=== PATIENT | male | born 1965 | race Caucasian/White ===

== ENCOUNTER 2022-08-24 11:32 | Emergency (ER) | payer OTHER ==
[2022-08-24] MEDS ORDERED: KETOROLAC 15 MG/ML 1 ML VIAL IVP STA (11:54)
[2022-08-24] MEDS ORDERED: LIDOCAINE 5% PATCH TOPICAL SCH (12:00)
--- NOTE | 2022-08-24 12:15 | ED ---
Back Pain HPI - General Chief Complaint: Back Pain/Injury Stated Complaint: lower back pain Time Seen by Provider: 08/24/22 11:38 Source: patient, RN notes reviewed Mode of arrival: ambulatory Limitations: no limitations - History of Present Illness Initial Comments: This is a 57-year-old male who presents to the emergency department for lower back pain. States that this started 4-5 days ago. Denies any known injuries. States that this is in the middle of the lower back. He takes Tylenol #3 at home, which have not been effective. Pain is much worse with movement. He does have chronic back problems, but states that this is much worse. Unsure how to describe this pain. Denies any loss of bowel/bladder control, but does feel like he has some weakness in the hip. Denies any fevers, chills, sore throat, cough, dyspnea, chest pain, palpitations, abdominal pain, nausea, vomiting, diarrhea, or headaches. MD Complaint: back pain Onset/Timin -: days(s) - Related Data Home Medications Medication Instructions Recorded Confirmed Acetaminophen with Codeine 1 tab PO TID 05/11/22 05/11/22 [Tylenol #4 Tablet] Albuterol Sulfate [Ventolin HFA] 1 puff INHALATION RT-Q4H PRN 05/11/22 05/11/22 Aspirin 81 mg PO DAILY 05/11/22 05/11/22 Atorvastatin [Lipitor] 40 mg PO DAILY 05/11/22 05/11/22 Cetirizine HCl [Zyrtec] 10 mg PO DAILY 05/11/22 05/11/22 Cholecalciferol [Vitamin D3 (25 25 mcg PO DAILY 05/11/22 05/11/22 Mcg = 1000 Iu)] Cyanocobalamin [Vitamin B-12] 1,000 mcg PO DAILY 05/11/22 05/11/22 Fluticasone Nasal [place] [Flonase 1 spr EA NOSTRIL DAILY 05/11/22 05/11/22 Nasal [place]] Metoprolol Succinate (ER) [Toprol 25 mg PO DAILY 05/11/22 05/11/22 Xl] Vitamin B Complex 1 cap PO DAILY 05/11/22 05/11/22 cilostazoL [Pletal] 100 mg PO BID 05/11/22 05/11/22 glipiZIDE XL [Glucotrol Xl] 5 mg PO DAILY 05/11/22 05/11/22 lisinopriL [Zestril] 10 mg PO HS 05/11/22 05/11/22 metFORMIN HCL 1,000 mg PO BID 05/11/22 05/11/22 Previous Rx's Medication Instructions Recorded Ketorolac [Toradol] 10 mg PO Q6HR PRN #12 tab 08/24/22 Lidocaine 5% Patch [Lidoderm 5% 1 patch TOPICAL DAILY PRN #30 patch 08/24/22 Patch] methocarbamoL [Robaxin-750] 750 mg PO TID PRN 7 Days #21 tab 08/24/22 Allergies Allergy/AdvReac Type Severity Reaction Status Date / Time Penicillins Allergy Unknown Verified 08/24/22 11:34 Childhood Review of Systems ROS Statement: Those systems with pertinent positive or pertinent negative responses have been documented in the HPI. ROS Other: All systems not noted in ROS Statement are negative. Past Medical History Past Medical History: COPD, Diabetes Mellitus, Hyperlipidemia, Hypertension History of Any Multi-Drug Resistant Organisms: None Reported Additional Past Surgical History / Comment(s): aortic heart valve, neck plates Past Psychological History: No Psychological Hx Reported Smoking Status: Never smoker Past Alcohol Use History: None Reported Past Drug Use History: None Reported General Exam Limitations: no limitations General appearance: alert, in no apparent distress Head exam: Present: atraumatic, normocephalic, normal inspection Respiratory exam: Present: normal lung sounds bilaterally. Absent: respiratory distress, wheezes, rales, rhonchi, stridor Cardiovascular Exam: Present: regular rate, normal rhythm, normal heart sounds. Absent: systolic murmur, diastolic murmur, rubs, gallop, clicks GI/Abdominal exam: Present: soft, normal bowel sounds. Absent: distended, tenderness, guarding, rebound, rigid Back exam: Present: normal inspection, other (Limited range of motion secondary to pain. No palpable tenderness.) Neurological exam: Present: alert, oriented X3, CN II-XII intact Psychiatric exam: Present: normal affect, normal mood Skin exam: Present: warm, dry, intact, normal color. Absent: rash Course Vital Signs 08/24/22 08/24/22 11:34 14:34 Temperature 98 F 97.6 F Pulse Rate 89 92 Respiratory 20 16 Rate Blood Pressure 112/74 116/78 O2 Sat by Pulse 99 99 Oximetry Medical Decision Making - Medical Decision Making This is a 57-year-old male who presents to the emergency department for lower back pain. Was pt. sent in by a medical professional or institution? @ -No Did you speak to anyone other than the patient for history? @ -No Did you review nursing and triage notes? @ -Yes, and I agree, it is accurate with regards to the patient's symptoms. Were old charts reviewed? @ -No Differential Diagnosis? @ -Differential Back Pain: Strain, zoster, cauda equina syndrome, epidural abscess, vertebral osteomyelitis, discitis, fracture, subluxation, disc herniation, DJD, spinal stenosis, dissection, AAA, pancreatitis, peptic ulcer disease, pyelonephritis, kidney stone, this is not meant to be an all-inclusive list. EKG interpreted by me (3pts min.)? @ -Not obtained X-rays interpreted by me (1pt min.)? @ -Not obtained CT interpreted by me (1pt min.)? @ -CT angiogram of the abdomen and pelvis and CT scan of the lumbar spine obtained. My interpretation identifies no evidence of an aneurysm and there are multiple degenerative changes in the lumbar spine. U/S interpreted by me (1pt. min.)? @ -Not obtained What testing was considered but not performed? (CT, X-rays, U/S, labs)? Why? @ -None What meds were considered but not given? Why? @ -None Did you discuss the management of the patient with other professionals? @ -No Did you reconcile home meds? @ -No Was smoking cessation discussed for >3mins.? @ -No Was critical care preformed (if so, how long)? @ -No Were there social determinants of health that impacted care today? How? (Homelessness, low income, unemployed, alcoholism, drug addiction, transportation, low edu. Level, literacy, decrease access to med. care, prison, rehab)? @ -No Was there de-escalation of care discussed even if they declined? (Discuss DNR or withdrawal of care, Hospice)? @ -No What co-morbidities impacted this encounter? (DM, HTN, Smoking, COPD, CAD, Cancer, CVA, Hep., AIDS, mental health diagnosis, sleep apnea, morbid obesity)? @ -DM, HTN, HLD Was patient admitted / discharged? @ -Discharged. Lab work obtained revealing leukocytosis. He was given Toradol and a lidocaine patch was applied, which was helpful for his pain. Given that this was a nontraumatic back pain that was not reproducible, along with his age and comorbidities, computed tomography scan of the abdomen and pelvis was obtained in conjunction with a computed tomography scan of the lumbar spine to rule out any problems related to the aorta. Computed tomography scan revealed no acute findings. It did identify multiple degenerative changes of the lumbar spine. The causae of his leukocytosis is not entirely clear. He is advised to follow-up with his primary care provider to have blood work rechecked. Prescriptions for Toradol, Robaxin, and lidocaine patches provided with dosing instructions reviewed. He is advised that the Robaxin can be sedating and he should avoid driving or operating machinery when taking this. Undiagnosed new problem with uncertain prognosis? @ -None Drug Therapy requiring intensive monitoring for toxicity (Heparin, Nitro, Insulin, Cardizem)? @ -None Were any procedures done? @ -None Diagnosis/symptom? @ -Lumbar strain Acute, or Chronic, or Acute on Chronic? @ -Acute Uncomplicated (without systemic symptoms) or Complicated (systemic symptoms)? @ -Uncomplicated Side effects of treatment? @ -None Exacerbation, Progression, or Severe Exacerbation] @ -Not applicable Poses a threat to life or bodily function? @ -No Return precautions reviewed in depth, the patient is instructed to return to the emergency department with any new, worsening, or concerning symptoms. Patient verbalized understanding. This case was discussed in detail with the attending ED physician, Dr. Keen. Presentation, findings, and treatment plan discussed in detail as well. - Lab Data Result diagrams: 08/24/22 12:01 08/24/22 12:01 Lab Results 08/24/22 08/24/22 08/24/22 Range/Units 12: 12: 13:02 WBC 15.4 H (3.8-10.6) k/uL RBC 4.16 L (4.30-5.90) m/uL Hgb 13.0 (13.0-17.5) gm/dL Hct 38.0 L (39.0-53.0) % MCV 91.3 (80.0-100.0) fL MCH 31.2 (25.0-35.0) pg MCHC 34.2 (31.0-37.0) g/dL RDW 12.6 (11.5-15.5) % Plt Count 206 (150-450) k/uL MPV 7.4 Neutrophils % 60 % Lymphocytes % 31 % Monocytes % 6 % Eosinophils % 1 % Basophils % 1 % Neutrophils # 9.3 H (1.3-7.7) k/uL Lymphocytes # 4.7 (1.0-4.8) k/uL Monocytes # 0.9 (0-1.0) k/uL Eosinophils # 0.2 (0-0.7) k/uL Basophils # 0.1 (0-0.2) k/uL Sodium 137 (137-145) mmol/L Potassium 4.2 (3.5-5.1) mmol/L Chloride 104 (98-107) mmol/L Carbon Dioxide 23 (22-30) mmol/L Anion Gap 10 mmol/L BUN 19 (9-20) mg/dL Creatinine 0.84 (0.66-1.25) mg/dL Est GFR (CKD-EPI)AfAm >90 (>60 ml/min/1.73 sqM) Est GFR (CKD-EPI)NonAf >90 (>60 ml/min/1.73 sqM) Glucose 184 H (74-99) mg/dL Calcium 9.1 (8.4-10.2) mg/dL Total Bilirubin 0.4 (0.2-1.3) mg/dL AST 23 (17-59) U/L ALT 28 (4-49) U/L Alkaline Phosphatase 77 (38-126) U/L Total Protein 6.8 (6.3-8.2) g/dL Albumin 4.3 (3.5-5.0) g/dL Urine Color Colorless Urine Appearance Clear (Clear) Urine pH 5.0 (5.0-8.0) Ur Specific [place] 1.003 (1.001-1.035) Urine Protein Negative (Negative) Urine Glucose (UA) Negative (Negative) Urine Ketones Negative (Negative) Urine Blood Negative (Negative) Urine Nitrite Negative (Negative) Urine Bilirubin Negative (Negative) Urine Urobilinogen <2.0 (<2.0) mg/dL Ur Leukocyte Esterase Negative (Negative) - Radiology Data Radiology results: report reviewed, image reviewed Disposition Clinical Impression: Strain of lumbar region Disposition: HOME SELF-CARE Instructions (If sedation given, give patient instructions): Low Back Strain (ED) Additional Instructions: Return to the emergency department with any new, worsening, or concerning symptoms. Take the Toradol up to every 6 hours as needed for pain relief. Do not take this with other [id number] anti-inflammatories such as ibuprofen. You can apply the lidocaine patches daily and you can take the muscle relaxant up to 3 times daily as well. Beware that this may make you drowsy and you should not drive or operate machinery when taking this. Follow up with your primary care provider in 1-2 days. Prescriptions: Lidocaine 5% Patch [Lidoderm 5% Patch] 1 patch TOPICAL DAILY PRN #30 patch PRN Reason: Pain methocarbamoL [Robaxin-750] 750 mg PO TID PRN 7 Days #21 tab PRN Reason: Pain Ketorolac [Toradol] 10 mg PO Q6HR PRN #12 tab PRN Reason: Pain Is patient prescribed a controlled substance at d/c from ED?: No Referrals: None,Stated [Primary Care Provider] - 1-2 days
[2022-08-24 12:16] LABS: Basophils # (A) 0.1 k/uL (0-0.2); Basophils % (A) 1 %; Eosinophils # (A) 0.2 k/uL (0-0.7); Eosinophils % (A) 1 %; Lymphocytes # (A) 4.7 k/uL (1.0-4.8); Lymphocytes % (A) 31 %; MCH 31.2 pg (25.0-35.0); MCHC 34.2 g/dL (31.0-37.0); MCV 91.3 fL (80.0-100.0); Mean Platelet Volume 7.4; Monocytes # (A) 0.9 k/uL (0-1.0); Monocytes % (A) 6 %; Neutrophils # (A) 9.3 k/uL (1.3-7.7); Neutrophils % (A) 60 %; Platelet Count 206 k/uL (150-450); RBC 4.16 m/uL (4.30-5.90); RDW 12.6 % (11.5-15.5); WBC 15.4 k/uL (3.8-10.6)
[2022-08-24 12:28] LABS: ALT 28 U/L (4-49); AST 23 U/L (17-59); African American GFR (CKD) >90 (>60 ml/min/1.73 sqM); Albumin 4.3 g/dL (3.5-5.0); Alkaline Phosphatase 77 U/L (38-126); Anion Gap 10 mmol/L; Blood Urea Nitrogen 19 mg/dL (9-20); Calcium 9.1 mg/dL (8.4-10.2); Carbon Dioxide 23 mmol/L (22-30); Chloride 104 mmol/L (98-107); Glucose 184 mg/dL (74-99); Non-African American GFR(CKD) >90 (>60 ml/min/1.73 sqM); Potassium 4.2 mmol/L (3.5-5.1); Sodium 137 mmol/L (137-145); Total Bilirubin 0.4 mg/dL (0.2-1.3); Total Protein 6.8 g/dL (6.3-8.2)
[2022-08-24 13:14] LABS: Appearance,Urine Clear (Clear); Bilirubin,Urine Negative (Negative); Blood,Urine Negative (Negative); Color,Urine Colorless; Glucose,Urine (UA) Negative (Negative); Ketones,Urine Negative (Negative); Leukocyte Esterase,Urine Negative (Negative); Nitrite,Urine Negative (Negative); Protein,Urine Negative (Negative); Specific Gravity,Urine 1.003 (1.001-1.035); Urobilinogen,Urine <2.0 mg/dL (<2.0)
--- NOTE | 2022-08-24 13:38 | CT ---
EXAMINATION TYPE: CT angio abdomen pelvis CT DLP: 684.10 mGycm, Automated exposure control for dose reduction was used. DATE OF EXAM: 08/24/2022 1:28 PM COMPARISON: None CLINICAL INDICATION:Male, 57 years old with history of Low back pain, no injury; PHH, Low back pain, evaluate the aorta TECHNIQUE: Multiple thin slice sub-millimeter images were obtained through the abdomen, pelvis, and l ower extremities after administration of contrast. 3-D reconstructed images and maximum intensity pr ojection images were obtained of the abdomen, pelvis, and lower extremities. CT Contrast: Contrast used:100 ml mL of Isovue 370 without and with IV Contrast, Oral contrast used: without Oral Contrast None FINDINGS: CTA Abdomen and pelvis: The abdominal aorta does not demonstrate aneurysmal dilatation. Atherosclero tic plaquing is identified within the abdominal aorta. The origins of the superior mesenteric artery , renal arteries, inferior mesenteric artery, and celiac axis are patent. The iliac vessels are pain with atherosclerotic calcified and noncalcified plaque throughout their course. LIVER: Unremarkable GALLBLADDER AND BILE DUCTS: Unremarkable. PANCREAS: Unremarkable. SPLEEN: Unremarkable. ADRENAL GLANDS: Adenomatous hypertrophy changes bilaterally. KIDNEYS AND URETERS: No evidence of hydronephrosis or renal calculus. The ureters are unremarkable. PELVIS BLADDER: Unremarkable REPRODUCTIVE: Calcifications of the vas deferens bilaterally. ABDOMEN & PELVIS STOMACH AND BOWEL: No evidence of bowel obstruction. Scattered colonic diverticula. PERITONEUM: No evidence of pneumoperitoneum or free fluid. VASCULATURE: No evidence of aortic aneurysm. MUSCULOSKELETAL: Mild disc degeneration changes are present throughout the thoracolumbar spine with o steophyte formation mild scattered disc space narrowing and facet joint arthropathy. Findings worse a t L4-L5 and L5-S1. LYMPH NODES: No gross evidence for lymphadenopathy. SOFT TISSUE/ABDOMINAL WALL: Unremarkable IMPRESSION The abdominal aorta and its branches are patent. Mild atherosclerosis throughout the aorta. No eviden ce for dissection or aneurysmal dilation. No acute abdominal process. Clonic diverticula used.
--- NOTE | 2022-08-24 13:45 | CT ---
EXAMINATION TYPE: CT lumbar spine wo con CT DLP: 458.8 mGycm, Automated exposure control for dose reduction was used. DATE OF EXAM: 08/24/2022 1:27 PM COMPARISON: None. CLINICAL INDICATION:Male, 57 years old with history of Low back pain, no injury; Low back pain, evalu ate aorta TECHNIQUE: Multiple axial images were obtained from the midportion of T11 through the sacroiliac maisha nts. Soft tissue and bone windows in coronal and sagittal planes were obtained and reviewed. Contrast used: none. Oral contrast used: none. FINDINGS: There are 5 lumbar type vertebral bodies within normal alignment. Multilevel disc degeneration change s with osteophyte formation. No evidence of fracture. Disc height is relatively maintained. Mild disc space narrowing at L5-S1. There is some pseudoarthrosis L4-L5 spinous processes subchondral cystic c hange and sclerosis. There is moderate bilateral neural foraminal stenosis 5 S1 on the right and mild on the left. The remainder of the levels demonstrate [id number] neural foraminal stenosis. The re is mild spinal canal stenosis at L4-L5 secondary to disc bulge. IMPRESSION: 1. No evidence for spinal fracture. 2. Multilevel mild disc degeneration changes with neural foraminal stenosis worse at L5-S1 on the rig ht. 3. Mild degeneration changes throughout the spine worse at L5-S1. 4. 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 No evidence for significant spinal canal stenosis.
[2022-08-24 14:35] VITALS: BP 116/78; PULSE 92; RESP 16; TEMP 97.6
== END 2022-08-24 14:35 | disposition home or self-care (01) ==
LOC: EC 11:32
DX: S39.012A Strain of muscle, fascia and tendon of lower back, initial encounter (principal); J44.9 Chronic obstructive pulmonary disease, unspecified; E11.9 Type 2 diabetes mellitus without complications; E78.5 Hyperlipidemia, unspecified; I10 Essential (primary) hypertension; Z88.0 Allergy status to penicillin; Z79.82 Long term (current) use of aspirin; Z79.84 Long term (current) use of oral hypoglycemic drugs; Z79.899 Other long term (current) drug therapy; Z79.51 Long term (current) use of inhaled steroids; X50.9XXA Other and unspecified overexertion or strenuous movements or postures, initial encounter
CPT/HCPCS: 99284 ×2; 96374 ×2; 36415; 80053; 85025; 81003; 72131; 74174; J1885; Q9967

== ENCOUNTER 2023-11-09 08:56 | Emergency (ER) | payer OTHER ==
[2023-11-09 09:00] VITALS: TEMP 98.1
[2023-11-09 09:43] LABS: Basophils # (A) 0.1 k/uL (0-0.2); Basophils % (A) 1 %; Eosinophils # (A) 0.2 k/uL (0-0.7); Eosinophils % (A) 2 %; HCT 40.9 % (39.0-53.0); Lymphocytes # (A) 3.4 k/uL (1.0-4.8); Lymphocytes % (A) 33 %; MCH 30.9 pg (25.0-35.0); MCHC 34.3 g/dL (31.0-37.0); MCV 90.1 fL (80.0-100.0); Mean Platelet Volume 6.8; Monocytes # (A) 0.5 k/uL (0-1.0); Monocytes % (A) 4 %; Neutrophils # (A) 6.1 k/uL (1.3-7.7); Neutrophils % (A) 59 %; Platelet Count 202 k/uL (150-450); RBC 4.54 m/uL (4.30-5.90); RDW 13.3 % (11.5-15.5); WBC 10.4 k/uL (3.8-10.6)
[2023-11-09 09:58] LABS: ALT 19 U/L (4-49); African American GFR (CKD) 81 (>60 ml/min/1.73 sqM); Albumin 4.4 g/dL (3.5-5.0); Anion Gap 12 mmol/L; Blood Urea Nitrogen 25 mg/dL (9-20); Calcium 9.2 mg/dL (8.4-10.2); Carbon Dioxide 15 mmol/L (22-30); Chloride 109 mmol/L (98-107); Glucose 153 mg/dL (74-99); Non-African American GFR(CKD) 70 (>60 ml/min/1.73 sqM); Sodium 136 mmol/L (137-145); Total Bilirubin 0.7 mg/dL (0.2-1.3); Total Protein 7.2 g/dL (6.3-8.2)
[2023-11-09 10:02] LABS: AST 26 U/L (17-59); Alkaline Phosphatase 76 U/L (38-126); Magnesium 1.4 mg/dL (1.6-2.3); Potassium 5.5 mmol/L (3.5-5.1)
[2023-11-09 10:06] LABS: NT-Pro-B-Type Natriuretic Pept <20 pg/mL
--- NOTE | 2023-11-09 10:10 | XR ---
EXAMINATION TYPE: XR chest 2V DATE OF EXAM: 11/09/2023 10:00 AM CLINICAL INDICATION: Male, 58 years old with history of difficulty breathing; COMPARISON: Chest radiographs from 11/09/2023 TECHNIQUE: XR chest 2V Frontal view of the chest. FINDINGS: Lungs/Pleura: There is no evidence of pleural effusion, focal consolidation, or pneumothorax. Pulmonary vascularity: Unremarkable. Heart/mediastinum: Cardiomediastinal silhouette is unremarkable. Post aortic valve repair changes. L eft atrial appendage occlusion device is present. Musculoskeletal: No acute osseous pathology. Midline sternotomy wires are noted. Other findings: None IMPRESSION: No acute cardiopulmonary disease/process.
[2023-11-09 10:14] LABS: INR 0.9 (<1.2); Partial Thromboplastin Time 24.9 sec (22.0-30.0); Prothrombin Time 10.4 sec (10.0-12.5)
[2023-11-09] MEDS: IPRATROPIUM-ALBUTEROL 3 ML NEB INHALATION STA (10:22)
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
[2023-11-09 11:26] VITALS: BP 126/93; PULSE 89; RESP 20
== END 2023-11-09 11:49 | disposition home or self-care (01) ==
LOC: EC 08:56
CPT/HCPCS: 36415; 71046; 80053; 83735; 83880; 84484; 85025; 85379; 85610; 85730; 93005; 94640; 99285; 99406